=== PATIENT | female | born 1980 | race Two or more races ===

== ENCOUNTER 2016-11-07 17:39 | Emergency (ER) | payer MEDICAID, OTHER ==
[~2016-11-07] VITALS: Ht 165.1 cm; Wt 69.4 kg
[2016-11-07 19:06] VITALS: BP 124/71
[2016-11-07] MEDS ORDERED: KETOROLAC TROMETH 60MG/2ML VIAL IM ONE (21:00)
== END 2016-11-07 21:34 | disposition home or self-care (01) ==
LOC: ER 17:52
DX: S93.601A Unspecified sprain of right foot, initial encounter (principal); W10.9XXA Fall (on) (from) unspecified stairs and steps, initial encounter; Y93.89 Activity, other specified; Y99.9 Unspecified external cause status; Y92.89 Other specified places as the place of occurrence of the external cause
CPT/HCPCS: 73610; 73630; 96372; 99284; J1885